=== PATIENT | female | born 1940 | race Two or more races ===

== ENCOUNTER 2018-06-06 21:48 | Inpatient (IN) | payer MEDICARE, BC ==
[~2018-06-06] VITALS: Ht 157.5 cm; Wt 52.6 kg
[~2018-06-06 21:48] MED LIST: AMLO5TAB9 PO; DIGO125T PO; DILT180C66 PO; DIVA-78 PO; FLUT1DIS5 INH; GEMF600T5 PO; IPRA0.2S49 IH; IPRA42SP2 NS; LEVO50TA8 PO; OMEP20CA10 PO; PRED5TAB48 PO
[2018-06-06] MEDS ORDERED: FURO20TA4 PO (22:24)
[2018-06-06] MEDS ORDERED: POLY30DR EACHEYE (22:27)
[2018-06-06] MEDS ORDERED: PANT40TA4 PO (22:29)
[2018-06-06] MEDS ORDERED: RISP1TAB27 PO (22:30)
[2018-06-06] MEDS ORDERED: IPRATROPIUM NEB FS 0.5 MG/2.5 ML AMPUL.NEB IH PRN (22:30)
[2018-06-06] MEDS ORDERED: SODI100037 PO (22:32)
[2018-06-06] MEDS ORDERED: TOBR5DRO36 LEFTEYE (22:35)
[2018-06-07] MEDS ORDERED: MAG HYDROX/AL HYDROX/SIMETH 30 ML UDC PO PRN
[2018-06-07] MEDS ORDERED: ACETAMINOPHEN 325 MG TABLET PO PRN
[2018-06-07] MEDS ORDERED: LORAZEPAM 0.5 MG TABLET PO PRN
[2018-06-07] MEDS ORDERED: TEMAZEPAM 7.5 MG CAPSULE PO PRN
[2018-06-07] MEDS ORDERED: MAGNESIUM HYDROXIDE 30 ML UDC PO PRN
[2018-06-07 00:38] VITALS: BP 115/72
--- NOTE | 2018-06-07 00:55 | NUR ---
ADMISSION NOTES ADMITTED THIS 77 Y/O FEMALE VOLUNTARY STATUS, PATIENT ADMITTED FROM [facility] AND INTIALLY FROM HOME , PT. ADMITTED ON VOLUNTARILY DUE TO SUICIDAL IDEATION , OVER DOSE, PT. STATES TOOK APPROXIMATELY #15 OF RISPERDAL TABLET, AND APPROXIMATELY # 30 OF DIGOXIN TABLET, C/O DEPRESSION , UPON FACE TO FACE ASSESSMENT PATIENT IS A&O X-2,3 COOPERTIVE, DEPRESSED MOOD, FELLING HELPLESS , FLAT AFFECT ,EASILY AGITATED , PT.IS POOR HISTORIAN, POOR INSIGHT ,POOR JUDGEMENT ,V/S WNL, NO ACUTE DISTRESS NOTED , MD AWARE AND NOTIFIED OF THE ADMISSION , SKIN ASSESSMENT DONE, PICTURE TAKEN AND PLACE IN THE CHART, ENCOURAGED PT. VERBALIZED ANY FEELING CONCERN TO STAFF, ORIENT TO UNIT POLICY, WILL CONTINUE TO MONITOR FOR Q15, CONTRACT FOR SAFETY AND BEHAVIOR.
[2018-06-07 07:33] LABS: BASOPHILS % (AUTO) 0.5 % (0.0-2.0); EOSINOPHILS % (AUTO) 1.3 % (0.0-6.0); HEMATOCRIT 36 % (33-45); HEMOGLOBIN 12.1 g/dL (11.5-14.8); LYMPHOCYTES # (AUTO) 1.8 /CMM (0.8-4.8); LYMPHOCYTES % (AUTO) 32.3 % (20.0-44.0); MEAN CORPUSCULAR HGB CONC 33 g/dl (31.0-36.0); MEAN CORPUSCULAR VOLUME 91 fL (82-100); MONOCYTES # (AUTO) 0.6 /CMM (0.1-1.30); MONOCYTES % (AUTO) 9.8 % (2.0-12.0); NEUTROPHILS # (AUTO) 3.1 /CMM (1.8-8.9); NEUTROPHILS % (AUTO) 56.1 % (43.0-81.0); PLATELET COUNT (AUTO) 160 /CMM (150-450); RED BLOOD CELL COUNT(AUTO) 4.02 MIL/uL (4.0-5.2); WHITE BLOOD COUNT (AUTO) 5.6 K/uL (4.3-11.0)
[2018-06-07 07:41] LABS: ALANINE AMINOTRANSFERASE 18 U/L (12-78); ALBUMIN 2.7 g/dL (3.4-5.0); ALKALINE PHOSPHATASE 46 U/L (46-116); ASPARTATE AMINOTRANSFERASE 17 U/L (15-37); BILIRUBIN,TOTAL 0.3 mg/dL (0.2-1.0); CALCIUM, SERUM 9.1 mg/dL (8.5-10.1); CARBON DIOXIDE 31 mmol/L (21-32); CHLORIDE 98 mmol/L (98-107); CREATININE 0.8 mg/dL (0.6-1.3); GLUCOSE 94 mg/dL (74-106); POTASSIUM 4.5 mmol/L (3.5-5.1); SODIUM SERUM 135 mmol/L (136-145); UREA NITROGEN, BLOOD 26 mg/dL (7-18)
[2018-06-07 07:42] LABS: DIGOXIN 1.73 ng/mL (0.90-2.00)
[2018-06-07 08:00] VITALS: BP_SYST 121; BP_DIAS 55; BP_DIAS 66
[2018-06-07] MEDS: PANTOPRAZOLE 40 MG TABLET.DR PO SCH (08:15)
[2018-06-07] MEDS: LEVOTHYROXINE SODIUM 50 MCG TABLET PO SCH (08:15)
[2018-06-07 08:35] LABS: CHOLESTEROL 184 mg/dL (<200); HDL CHOLESTEROL 45 mg/dL (40-60); TRIGLYCERIDES 235 mg/dL (30-150)
[2018-06-07 08:36] LABS: LDL 110 mg/dL (0-99)
[2018-06-07] MEDS ORDERED: DILTIAZEM HCL 30 MG TABLET PO SCH (09:00)
[2018-06-07] MEDS ORDERED: FLUTICASONE/SALMETEROL DISKUS IH SCH (09:00)
[2018-06-07] MEDS: DIGOXIN 0.125 MG TABLET PO SCH (09:30)
--- NOTE | 2018-06-07 09:30 | NUR ---
GPS/RN-NOTES VERIFY WITH PATIENT REGARDING PREDNISONE ALLERGY. PATIENT STATED" I'M ONLY ALLERGIC TO IT WHEN THEY GIVE ME LARGE DOSE LIKE 40MG, IT MAKES ME PSYCHOTIC, 10MG IS OK" ADMINISTER PREDNISONE 10 MG P.O ORDER.
[2018-06-07] MEDS: predniSONE 10 MG TABLET PO SCH (09:31)
[2018-06-07] MEDS: AMLODIPINE BESYLATE 5 MG TABLET PO SCH (09:31)
[2018-06-07] MEDS: GEMFIBROZIL 600 MG TABLET PO SCH ×2 (09:31→17:07)
[2018-06-07] MEDS: FLUTICASONE/VILANTEROL 1 EACH BLST.W.DEV IH SCH (09:34)
--- NOTE | 2018-06-07 12:05 | NUR ---
INITIAL DISCHARGE PLAN: Patient wishes to be discharged home to [address] [place] [address]. EMPERATRIZ contacted pts daughter Danette [phone] who stated pt is able to return home once stable for discharge and also mentioned she was going to request DPOA and administer pts medication to avoid pt attempting to overdose again. SW will help form a safe and proper discharge in collaboration with daughter, pt and MD.
[2018-06-07] MEDS: DILTIAZEM HCL 30 MG TABLET PO SCH ×2 (12:59→17:07)
[2018-06-07 13:03] LABS: APPEARANCE,URINE SL CLOUDY (CLEAR); BILIRUBIN,URINE NEGATIVE (NEGATIVE); BLOOD, URINE NEGATIVE Ery/uL (NEGATIVE); COLOR,URINE YELLOW (YELLOW); KETONES,URINE NEGATIVE (NEGATIVE); LEUKOCYTE ESTERASE ,URINE NEGATIVE (NEGATIVE); NITRITE, URINE NEGATIVE (NEGATIVE); PROTEIN,URINE NEGATIVE (NEGATIVE); UGLUCOSE NEGATIVE (NEGATIVE); UROBILINOGEN,URINE 0.2 EU/dL (0.2)
[2018-06-07 16:00] VITALS: BP 106/60
[2018-06-07 20:00] VITALS: BP 106/58
[2018-06-07] MEDS: MIRTAZAPINE 15 MG TABLET PO SCH (21:29)
[2018-06-07] MEDS: risperiDONE 1 MG TABLET PO SCH (21:29)
[2018-06-08] MEDS: DILTIAZEM HCL 30 MG TABLET PO SCH ×4 (05:54→17:17)
--- NOTE | 2018-06-08 05:55 | NUR ---
BP 128/63, HR 60
[2018-06-08 08:00] VITALS: BP_SYST 116; BP_DIAS 59; BP_DIAS 69
[2018-06-08] MEDS: DIVALPROEX SODIUM 250 MG TABLET.DR PO SCH ×3 (08:41→16:41)
[2018-06-08] MEDS: PANTOPRAZOLE 40 MG TABLET.DR PO SCH (08:41)
[2018-06-08] MEDS: LEVOTHYROXINE SODIUM 50 MCG TABLET PO SCH (08:41)
[2018-06-08] MEDS: GEMFIBROZIL 600 MG TABLET PO SCH ×2 (08:41→16:41)
[2018-06-08] MEDS: predniSONE 10 MG TABLET PO SCH (08:41)
[2018-06-08] MEDS: AMLODIPINE BESYLATE 5 MG TABLET PO SCH (08:42)
[2018-06-08] MEDS: DIGOXIN 0.125 MG TABLET PO SCH (08:42)
[2018-06-08] MEDS: FLUTICASONE/VILANTEROL 1 EACH BLST.W.DEV IH SCH (08:43)
--- NOTE | 2018-06-08 09:48 | NUR ---
WOUND CARE CONSULT: PT PRESENTS WITH SACRAL SCAR AND BILATERAL BUTTOCKS IRRIATION, LEFT GROIN SUTURE, ALL PRESENT ON ADMISSION.D RECOMMENDATIONS MADE FOR SKIN PROTECTION AND DISCUSSED WITH NURSING STAFF. PT IS CONTINENT AND AMBULATORY. WILL SEE PRN. BARILLAS IN AGREEMENT WITH PLAN OF CARE. Addendum: 06/08/18 at 0950 by TENZIN RADERU DEFER TO MD FOR LEFT GROIN SUTURE, PRESENT ON ADMISSION. Addendum: 06/08/18 at 0950 by TENZIN LEARY WNBILLU Amended: Links added.
[2018-06-08] MEDS ORDERED: Z GUARD REMEDY 2 OZ OINT TP PRN (10:00)
[2018-06-08] MEDS: Z GUARD REMEDY 2 OZ OINT TP SCH (11:17)
[2018-06-08 16:00] VITALS: BP 106/52
[2018-06-08 20:00] VITALS: BP 110/47
[2018-06-08] MEDS: risperiDONE 1 MG TABLET PO SCH (21:20)
[2018-06-08] MEDS: MIRTAZAPINE 15 MG TABLET PO SCH (21:20)
--- NOTE | 2018-06-09 00:25 | NUR ---
BP NOW 124/49, PULSE 60.
[2018-06-09] MEDS: DILTIAZEM HCL 30 MG TABLET PO SCH ×4 (06:00→18:00)
--- NOTE | 2018-06-09 06:13 | NUR ---
BP NOW 121/41, PULSE 60.
[2018-06-09 06:14] VITALS: BP 121/41
[2018-06-09 08:00] VITALS: BP 110/59
[2018-06-09] MEDS: PANTOPRAZOLE 40 MG TABLET.DR PO SCH (08:19)
[2018-06-09] MEDS: DIVALPROEX SODIUM 250 MG TABLET.DR PO SCH ×3 (08:19→16:36)
[2018-06-09] MEDS: GEMFIBROZIL 600 MG TABLET PO SCH ×2 (08:19→16:36)
[2018-06-09] MEDS: Z GUARD REMEDY 2 OZ OINT TP SCH (08:20)
[2018-06-09] MEDS: DIGOXIN 0.125 MG TABLET PO SCH (08:20)
[2018-06-09] MEDS: AMLODIPINE BESYLATE 5 MG TABLET PO SCH (08:20)
[2018-06-09] MEDS: predniSONE 10 MG TABLET PO SCH (08:20)
[2018-06-09] MEDS: LEVOTHYROXINE SODIUM 50 MCG TABLET PO SCH (08:20)
[2018-06-09] MEDS: FLUTICASONE/VILANTEROL 1 EACH BLST.W.DEV IH SCH (08:21)
[2018-06-09 16:00] VITALS: BP 110/56
[2018-06-09 20:00] VITALS: BP 111/48
[2018-06-09] MEDS: MIRTAZAPINE 15 MG TABLET PO SCH (22:03)
[2018-06-09] MEDS: risperiDONE 1 MG TABLET PO SCH (22:03)
--- NOTE | 2018-06-10 00:30 | NUR ---
GPS RN NOTES PT SLEEPING. EASILY AROUSABLE. NOT IN ANY DISTRESS. NO SOB NOTED. NO S/SX OF ANY PAIN OR DISCOMFORT AT THIS TIME. WILL CONTINUE TO MONITOR FOR BEHAVIOR AND SAFETY.
[2018-06-10] MEDS: DILTIAZEM HCL 30 MG TABLET PO SCH ×6 (06:42→23:43)
[2018-06-10] MEDS: PANTOPRAZOLE 40 MG TABLET.DR PO SCH (07:30)
[2018-06-10] MEDS: LEVOTHYROXINE SODIUM 50 MCG TABLET PO SCH (07:30)
[2018-06-10 07:33] LABS: CALCIUM, SERUM 9.5 mg/dL (8.5-10.1); CARBON DIOXIDE 29 mmol/L (21-32); CHLORIDE 103 mmol/L (98-107); CREATININE 0.9 mg/dL (0.6-1.3); GLUCOSE 92 mg/dL (74-106); POTASSIUM 4.2 mmol/L (3.5-5.1); SODIUM SERUM 138 mmol/L (136-145); UREA NITROGEN, BLOOD 27 mg/dL (7-18)
[2018-06-10 08:00] VITALS: BP 111/56
[2018-06-10] MEDS: DIGOXIN 0.125 MG TABLET PO SCH (09:30)
[2018-06-10] MEDS: predniSONE 10 MG TABLET PO SCH (09:30)
[2018-06-10] MEDS: GEMFIBROZIL 600 MG TABLET PO SCH ×2 (09:30→16:05)
[2018-06-10] MEDS: AMLODIPINE BESYLATE 5 MG TABLET PO SCH (09:30)
[2018-06-10] MEDS: DIVALPROEX SODIUM 250 MG TABLET.DR PO SCH ×3 (09:30→17:03)
[2018-06-10] MEDS: Z GUARD REMEDY 2 OZ OINT TP SCH (09:32)
[2018-06-10] MEDS: FLUTICASONE/VILANTEROL 1 EACH BLST.W.DEV IH SCH (09:32)
[2018-06-10 16:00] VITALS: BP 122/76
--- NOTE | 2018-06-10 19:05 | NUR ---
RN OPENING NOTES: RECEIVED PT FROM GPS FLOOR WITH RN AT BEDSIDE. PT IS A/O2-3. NO IV NOTED PER GPS PROTOCOL. NO SOB NOTED. NO S/S OF DISTRESS. PT IN BED WATCHING TELEVISION AT THIS TIME. BED KEPT IN LOW, LOCKED POSITION, AND SIDE RAILS X 2UP. WILL CONTINUE TO MONITOR PT. Addendum: 06/10/18 at 2202 by KEVIN EDMOND RN BELONGINGS PLACED IN CABINET AND LOCKED.
[2018-06-10 20:00] VITALS: BP 128/82
[2018-06-10] MEDS: MIRTAZAPINE 15 MG TABLET PO SCH (21:26)
[2018-06-10] MEDS: risperiDONE 1 MG TABLET PO SCH (21:26)
--- NOTE | 2018-06-10 23:43 | NUR ---
RN NOTES: PT REFUSING CARDIZEM 30MG PO. PT SAYING THAT HER BLOOD PRESSURE IS OK. PT'S PULSE BELOW 60. WILL MONITOR BLOOD PRESSURE AGAIN IN THE AM AND ADMINISTER NEEDED. WILL CONTINUE TO MONITOR.
[2018-06-11] MEDS: DILTIAZEM HCL 30 MG TABLET PO SCH ×3 (06:00→17:40)
--- NOTE | 2018-06-11 06:39 | NUR ---
RN CLOSING NOTES: ALL NEEDS WERE ATTENDED AND ANTICIPATED FOR. PT ASLEEP AT THIS TIME AND RESTING COMFORTABLY. NO IV NOTED PER GPS PROTOCOL. SITTER AT BEDSIDE. PT'S CARDIZEM 30MG HELD THIS AM BLOOD PRESSURE WAS LOW. BED KEPT IN LOW, LOCKED POSITION, AND SIDE RAILS X 2UP. NO SOB NOTED. NO S/S OF DISTRESS. WILL ENDORSE TO AM NURSE FOR FRANCK. Addendum: 06/11/18 at 0641 by KEVIN EDMOND RN PT SLEPT FOR AT LEAST 8 HOURS. Addendum: 06/11/18 at 0641 by KEVIN EDMOND RN PT DENIES ANY SI AT THIS TIME.
--- NOTE | 2018-06-11 07:30 | NUR ---
MS RN OPENING NOTE RECEIVED PT IN BED SLEEPING. NO ACUTE DISTRESS NOTED AT THIS TIME. BREATHING IS EVEN AND UNLABORED ON ROOM AIR. PT HAS NO IV ACCESS PER GPS PROTOCOL. ALL NEEDS ATTENDED TO. 1:1 SITTER NOTED AT THE BEDSIDE FOR SAFETY PER PROTOCOL. BED IS LOCKED AND IN LOWEST POSITION, SIDE RAILS UP X2, CALL LIGHT AND POSSESSIONS WITHIN REACH.
[2018-06-11 08:00] VITALS: BP 127/57
--- NOTE | 2018-06-11 08:00 | NUR ---
MS RN NOTE PT REQUESTS TO TAKE SYNTHROID AND PROTONIX PO LATER WITH OTHER MEDICATIONS SO SHE CAN SLEEP. RISKS AND BENEFITS EXPLAINED. PT STILL DECLINED TO TAKE MEDICATIONS NOW.
--- NOTE | 2018-06-11 08:45 | NUR ---
MS RN NOTE SPOKE WITH MANAGER DEPARTMENT IN PERSON REQUESTING THAT BREO, PREDNISONE 10MG, AND LOPID 600MG BE RE STOCKED FOR ADMINISTRATION. AWAITING DELIVERY.
[2018-06-11] MEDS: AMLODIPINE BESYLATE 5 MG TABLET PO SCH (09:00)
--- NOTE | 2018-06-11 09:15 | NUR ---
MS RN NOTE PER PHARMACIST, CLARIFY WITH PRIMARY DR REGARDING PREDNISONE ADMINISTRATION AND LISTED ALLERGY BEFORE ADMINISTRATION. PT STATES THAT SHE DOES NOT EXPERIENCE ANY SOB, HIVES, RASH, CHEST PAIN OR TIGHTNESS WHEN SHE TAKES PREDNISONE AT "LOW DOSES". AWAITING RESPONSE FROM DR. VERDIN
--- NOTE | 2018-06-11 09:44 | NUR ---
MS RN NOTE PER ANDREINA HADDAD TO CONTINUE PREDNISONE 10MG.
[2018-06-11] MEDS: DIVALPROEX SODIUM 250 MG TABLET.DR PO SCH ×3 (09:48→17:40)
[2018-06-11] MEDS: PANTOPRAZOLE 40 MG TABLET.DR PO SCH (09:48)
[2018-06-11] MEDS: LEVOTHYROXINE SODIUM 50 MCG TABLET PO SCH (09:48)
[2018-06-11] MEDS: GEMFIBROZIL 600 MG TABLET PO SCH ×2 (09:48→17:40)
[2018-06-11] MEDS: predniSONE 10 MG TABLET PO SCH (09:48)
[2018-06-11] MEDS: FLUTICASONE/VILANTEROL 1 EACH BLST.W.DEV IH SCH (09:49)
[2018-06-11] MEDS: Z GUARD REMEDY 2 OZ OINT TP SCH (09:49)
[2018-06-11] MEDS: DIGOXIN 0.125 MG TABLET PO SCH (09:49)
--- NOTE | 2018-06-11 12:30 | NUR ---
MS RN LUNCH PT REFUSING LUNCH AT THIS TIME. PT STATES SHE DOES NOT FEEL LIKE EATING. OFFERED TO PROVIDE A DIFFERENT MEAL OR SANDWICH. PT DECLINED FOOD. ENCOURAGE PO INTAKE, PT DRANK 1 CUP OF WATER. OFFERED JUICE, PT DECLINED.
--- NOTE | 2018-06-11 13:00 | NUR ---
MS RN LUNCH PT STILL REFUSING LUNCH AND SNACKS. OFFERED TO CALL [employer] FOR A DIFFERENT MEAL OR PROVIDE SNACKS AND JUICE. PT DECLINED AND STATED SHE HAS NO APPETITE. ENCOURAGED PO INTAKE AND PROVIDED EDUCATION REGARDING RISKS AND BENEFITS. PT STILL DECLINED AT THIS TIME.
--- NOTE | 2018-06-11 19:05 | NUR ---
MS RN CLOSING NOTE PT IN BED, SLEEPING AND EASILY AROUSABLE PT IS ALERT AND ORIENTED X4, DENIES N/V, CHEST PAIN, SOB. DENIES SI AND AUDITORY/VISUAL HALLUCINATIONS AT THIS TIME AND FOR THE DURATION OF THE SHIFT. NO IV ACCESS PER GPS PROTOCOL. 1:1 SITTER AT THE BEDSIDE FOR SAFETY. ALL NEEDS ATTENDED TO. ADLS PROVIDED AND PT ASSISTED TO TURN AND REPOSITION Q2H FOR THE DURATION OF THE SHIFT. Q15 SAFETY CHECKS COMPLETED PER PROTOCOL. BED IS LOCKED AND IN LOWEST POSITION, SIDE RAILS UP X2, CALL LIGHT AND POSSESSIONS WITHIN REACH.
--- NOTE | 2018-06-11 19:30 | NUR ---
MS RN OPENING NOTES: RECEIVED PT ON ROOM AIR AND IS TOLERATING WELL. SITTER AT BEDSIDE AT THIS TIME. PT ASLEEP AND AROUSABLE TO NAME AND TOUCH. NO SOB NOTE.D NO S/S OF DISTRESS. PT DENIES ANY SI. BED KEPT IN LOW, LOCKED POSITION, AND SIDE RAILS X 2UP. WILL CONTINUE TO MONITOR PT. Addendum: 06/11/18 at 2231 by KEVIN EDMOND RN RN OPENING NOTES
[2018-06-11 20:00] VITALS: BP 106/51
[2018-06-11] MEDS: risperiDONE 1 MG TABLET PO SCH (21:59)
[2018-06-11] MEDS: MIRTAZAPINE 15 MG TABLET PO SCH (21:59)
[2018-06-12] MEDS: DILTIAZEM HCL 30 MG TABLET PO SCH ×4 (06:00→17:17)
[2018-06-12 06:02] VITALS: BP 110/51
--- NOTE | 2018-06-12 06:37 | NUR ---
RN CLOSING NOTES: ALL NEEDS WERE ATTENDED AND ANTICIPATED FOR. PT KEPT CLEAN, DRY, AND COMFORTABLE. PT ASLEEP AT THIS TIME. SITTER AT BEDSIDE. NO IV NOTED PER GPS PROTOCOL. CARDIZEM 30MG HELD THIS AM D/T DECREASED BP. BED KEPT IN LOW, LOCKED POSITION, AND SIDE RAILS X 2UP. WILL ENDORSE TO AM NURSE FOR FRANCK.
--- NOTE | 2018-06-12 07:38 | NUR ---
MS/RN OPENING NOTE PATIENT IN BED IN STABLE CONDITION. A/O X 2-3. NO SIGNS OF ACUTE DISTRESS. NO COMPLAIN OF PAIN OR DISCOMFORT. ALL NEEDS ATTENDED TO. CALL LIGHT WITHIN REACH. 1:1 SITTER AT BEDSIDE. WILL CONTINUE TO MONITOR TO ENSURE SAFETY.
[2018-06-12] MEDS: DIVALPROEX SODIUM 250 MG TABLET.DR PO SCH ×3 (08:40→16:24)
[2018-06-12] MEDS: PANTOPRAZOLE 40 MG TABLET.DR PO SCH (08:40)
[2018-06-12] MEDS: AMLODIPINE BESYLATE 5 MG TABLET PO SCH (08:40)
[2018-06-12] MEDS: DIGOXIN 0.125 MG TABLET PO SCH (08:40)
[2018-06-12] MEDS: FLUTICASONE/VILANTEROL 1 EACH BLST.W.DEV IH SCH (08:40)
[2018-06-12] MEDS: predniSONE 10 MG TABLET PO SCH (08:40)
[2018-06-12] MEDS: LEVOTHYROXINE SODIUM 50 MCG TABLET PO SCH (08:40)
[2018-06-12] MEDS: GEMFIBROZIL 600 MG TABLET PO SCH ×2 (08:41→16:24)
[2018-06-12] MEDS: Z GUARD REMEDY 2 OZ OINT TP SCH (08:42)
[2018-06-12 08:59] VITALS: BP 137/58
[2018-06-12 16:34] VITALS: BP 111/86
--- NOTE | 2018-06-12 18:07 | NUR ---
MS/RN CLOSING NOTE PATIENT IN BED IN STABLE CONDITION. A/O X 3. NO SIGNS OF ACUTE DISTRESS. NO COMPLAIN OF PAIN OR DISCOMFORT. ALL NEEDS ATTENDED TO. CALL LIGHT WITHIN REACH. 1:1 SITTER AT BEDSIDE. WILL ENDORSE TO NEXT SHIFT FOR CONTINUITY OF CARE.
--- NOTE | 2018-06-12 19:30 | NUR ---
RN OPENING NOTES: RECEIVED PT ON ROOM AIR AND IS TOLERATING WELL. SITTER AT BEDSIDE. PT WATCHING TELEVISION AT THIS TIME. NO IV NOTED PER PROTOCOL. PT DENIES ANY SI AT THIS TIME. BED KEPT IN LOW, LOCKED POSITION, AND SIDE RAILS X 2UP. WILL CONTINUE TO MONITOR PT. Addendum: 06/12/18 at 1945 by KEVIN EDMOND RN RN OPENING NOTES
[2018-06-12 20:00] VITALS: BP 109/49
[2018-06-12] MEDS ORDERED: MIRTAZAPINE 15 MG TABLET ONE (21:23)
[2018-06-12] MEDS: risperiDONE 1 MG TABLET PO SCH (21:26)
[2018-06-12] MEDS: MIRTAZAPINE 15 MG TABLET PO SCH (21:26)
--- NOTE | 2018-06-12 21:37 | NUR ---
MS RN NOTES: REMERON 22.5MG OVERRODE FROM GLOBAL LIST THIS FLOOR ONLY HAD 1 REMERON 15MG LEFT.
--- NOTE | 2018-06-13 00:07 | NUR ---
MS RN NOTES: CARDIZEM 30MG HELD D/T TO DECREASED BLOOD PRESSURE. WILL CONTINUE TO MONITOR BP AND RECHECK IN THE AM.
--- NOTE | 2018-06-13 05:28 | NUR ---
RN NOTES PT MOVED TO GPS VIA WHEELCHAIR WITH GEROPSYCHOLOGIST TO ROOM 216A IN STABLE CONDITION. ALL BELONGINGS AND CHART SENT WITH PT.
--- NOTE | 2018-06-13 05:30 | NUR ---
RN NOTES: PT LEFT TO 216-1 IN STABLE CONDITION. ALL BELONGINGS TAKEN WITH SITTER. ENDORSED TO RECEIVING RN.
--- NOTE | 2018-06-13 05:30 | NUR ---
RN GPS NOTES RECEIVED PATIENT FROM MS 2 TRANSFERRED IN STABLE CONDITION SAFELY PLACED IN BED, ALERT AND VERBALLY RESPONSIVE. BODY ASSESSMENT DONE, NO CHANGES NOTED FROM PREVIOUS PICTURES IN CHART. BELONGINGS DONE, GLASSES KEPT AT BEDSIDE PER PATIENT REQUEST. BLOOD PRESSURE 111/53,70. CARDIZEM HELD DUE TO DECREASE B/P. WILL CONTINUE TO MONITOR.
[2018-06-13] MEDS: DILTIAZEM HCL 30 MG TABLET PO SCH ×5 (05:37→21:32)
[2018-06-13 08:00] VITALS: BP 113/58
--- NOTE | 2018-06-13 09:56 | NUR ---
EMPERATRIZ contacted pts daughter Danette [phone] to inform her pt will be discharging tomorrow 06/14/18. Daughter expressed concern and stated she feels pt is not ready for discharge as she still is showing symptoms of depression. Daughter states pt is only laying in bed and sleeping all day. EMPERATRIZ informed her that she will encourage pt to participate in group today and also inform Psychiatrist Dr. Anne of her concern. Daughter agreed.
--- NOTE | 2018-06-13 09:59 | NUR ---
EMPERATRIZ contacted Dr. Anne and left a voicemail informing him of pts daughter's concern with feeling pt is not ready for discharge as she is still exhibiting symptoms of depression.
[2018-06-13] MEDS: GEMFIBROZIL 600 MG TABLET PO SCH ×2 (10:26→17:16)
[2018-06-13] MEDS: LEVOTHYROXINE SODIUM 50 MCG TABLET PO SCH (10:26)
[2018-06-13] MEDS: predniSONE 10 MG TABLET PO SCH (10:26)
[2018-06-13] MEDS: DIGOXIN 0.125 MG TABLET PO SCH (10:26)
[2018-06-13] MEDS: AMLODIPINE BESYLATE 5 MG TABLET PO SCH (10:27)
[2018-06-13] MEDS: PANTOPRAZOLE 40 MG TABLET.DR PO SCH (10:27)
[2018-06-13] MEDS: DIVALPROEX SODIUM 250 MG TABLET.DR PO SCH ×3 (10:27→17:15)
[2018-06-13] MEDS: FLUTICASONE/VILANTEROL 1 EACH BLST.W.DEV IH SCH (10:27)
[2018-06-13] MEDS: Z GUARD REMEDY 2 OZ OINT TP SCH (10:28)
--- NOTE | 2018-06-13 12:21 | NUR ---
EMPERATRIZ contacted pts daughter Danette [phone] to inform her SW spoke with Psychiatrist Dr. Anne regarding her concerns and MD has changed discharge to Monday06/15/18 but will take it day by day. EMPERATRIZ also informed her that pt was was walking and participated in today's groups. SW also stated that she spoke with pt and pt also feels shes not ready to be discharged and stated that she may be feeling ill due to the blood pressure medication she is currently on. EMPERATRIZ informed daughter that she has made the charge nurse aware who will inform pts medical doctor. Daughter agreed.
--- NOTE | 2018-06-13 12:24 | NUR ---
GROUP NOTE: Topic: "What are you looking forward to when you discharge the hospital" S: "I am looking forward to seeing my great grandchildren, they bring so much sundar and happiness into my life." O: pt had a smile on her face and appeared with a euphoric mood. A: Pt gained awareness and realized that she has a family who loves and cared about her. Pt stated that she wanted to continue living and would not try to end her life again. P: Pt will continue in milieu treatment and medication stabilization.
[2018-06-13 16:00] VITALS: BP 118/55
[2018-06-13 20:27] VITALS: BP 111/42
[2018-06-13] MEDS: MIRTAZAPINE 15 MG TABLET PO SCH (21:31)
[2018-06-13] MEDS: risperiDONE 1 MG TABLET PO SCH (21:31)
[2018-06-14] MEDS: DILTIAZEM HCL 30 MG TABLET PO SCH ×3 (06:49→17:48)
[2018-06-14 08:00] VITALS: BP 116/72
[2018-06-14] MEDS: DIVALPROEX SODIUM 250 MG TABLET.DR PO SCH ×3 (08:30→16:42)
[2018-06-14] MEDS: predniSONE 10 MG TABLET PO SCH (08:31)
[2018-06-14] MEDS: LEVOTHYROXINE SODIUM 50 MCG TABLET PO SCH (08:31)
[2018-06-14] MEDS: AMLODIPINE BESYLATE 5 MG TABLET PO SCH (08:31)
[2018-06-14] MEDS: DIGOXIN 0.125 MG TABLET PO SCH (08:31)
[2018-06-14] MEDS: GEMFIBROZIL 600 MG TABLET PO SCH ×2 (08:31→16:42)
[2018-06-14] MEDS: PANTOPRAZOLE 40 MG TABLET.DR PO SCH (08:31)
[2018-06-14] MEDS: Z GUARD REMEDY 2 OZ OINT TP SCH (08:33)
[2018-06-14] MEDS: FLUTICASONE/VILANTEROL 1 EACH BLST.W.DEV IH SCH (09:16)
[2018-06-14 16:03] VITALS: BP 107/65
[2018-06-14 20:00] VITALS: BP 118/57
[2018-06-14] MEDS: risperiDONE 1 MG TABLET PO SCH (21:17)
[2018-06-14] MEDS: MIRTAZAPINE 15 MG TABLET PO SCH (21:18)
[2018-06-15] MEDS: DILTIAZEM HCL 30 MG TABLET PO SCH ×4 (06:00→17:03)
[2018-06-15 08:00] VITALS: BP 115/48
[2018-06-15] MEDS: PANTOPRAZOLE 40 MG TABLET.DR PO SCH (08:14)
[2018-06-15] MEDS: LEVOTHYROXINE SODIUM 50 MCG TABLET PO SCH (08:14)
[2018-06-15] MEDS: DIVALPROEX SODIUM 250 MG TABLET.DR PO SCH ×3 (08:14→17:03)
[2018-06-15] MEDS: predniSONE 10 MG TABLET PO SCH (08:14)
[2018-06-15] MEDS: FLUTICASONE/VILANTEROL 1 EACH BLST.W.DEV IH SCH (08:15)
[2018-06-15] MEDS: GEMFIBROZIL 600 MG TABLET PO SCH ×2 (08:15→17:03)
[2018-06-15] MEDS: AMLODIPINE BESYLATE 5 MG TABLET PO SCH (08:16)
[2018-06-15] MEDS: DIGOXIN 0.125 MG TABLET PO SCH (09:00)
[2018-06-15] MEDS: Z GUARD REMEDY 2 OZ OINT TP SCH (09:55)
[2018-06-15 16:00] VITALS: BP 106/49
[2018-06-15 20:00] VITALS: BP 114/43
[2018-06-15] MEDS: risperiDONE 1 MG TABLET PO SCH (21:11)
[2018-06-15] MEDS: MIRTAZAPINE 15 MG TABLET PO SCH (21:11)
[2018-06-16] MEDS: DILTIAZEM HCL 30 MG TABLET PO SCH ×2 (06:00)
--- NOTE | 2018-06-16 07:03 | NUR ---
PAGED DR. BISWAS, RE: LOW BP 91/35, HR 54. PATIENT IS ON NORVASC 5 DAILY AND CARDIZEM 30 MG PO Q 12H
--- NOTE | 2018-06-16 07:09 | NUR ---
DR. PEREZ CALLED, ORDERED TO DISCONTINUE NORVASC AND CARDIZEM
[2018-06-16 08:00] VITALS: BP 100/55
[2018-06-16] MEDS: DIGOXIN 0.125 MG TABLET PO SCH (09:00)
[2018-06-16] MEDS: predniSONE 10 MG TABLET PO SCH (10:49)
[2018-06-16] MEDS: LEVOTHYROXINE SODIUM 50 MCG TABLET PO SCH (10:49)
[2018-06-16] MEDS: DIVALPROEX SODIUM 250 MG TABLET.DR PO SCH ×3 (10:49→17:02)
[2018-06-16] MEDS: PANTOPRAZOLE 40 MG TABLET.DR PO SCH (10:49)
[2018-06-16] MEDS: GEMFIBROZIL 600 MG TABLET PO SCH ×2 (10:49→17:01)
[2018-06-16] MEDS: FLUTICASONE/VILANTEROL 1 EACH BLST.W.DEV IH SCH (10:50)
[2018-06-16] MEDS: Z GUARD REMEDY 2 OZ OINT TP SCH (10:50)
[2018-06-16 16:00] VITALS: BP 108/59
[2018-06-16 20:00] VITALS: BP 112/54
[2018-06-16] MEDS: MIRTAZAPINE 15 MG TABLET PO SCH (21:09)
[2018-06-16] MEDS: risperiDONE 1 MG TABLET PO SCH (21:09)
[2018-06-17 08:00] VITALS: BP 127/55
[2018-06-17] MEDS: DIGOXIN 0.125 MG TABLET PO SCH (09:00)
[2018-06-17] MEDS: predniSONE 10 MG TABLET PO SCH (09:44)
[2018-06-17] MEDS: GEMFIBROZIL 600 MG TABLET PO SCH ×2 (09:44→16:19)
[2018-06-17] MEDS: PANTOPRAZOLE 40 MG TABLET.DR PO SCH (09:44)
[2018-06-17] MEDS: FLUTICASONE/VILANTEROL 1 EACH BLST.W.DEV IH SCH (09:44)
[2018-06-17] MEDS: LEVOTHYROXINE SODIUM 50 MCG TABLET PO SCH (09:44)
[2018-06-17] MEDS: DIVALPROEX SODIUM 250 MG TABLET.DR PO SCH ×3 (09:44→16:19)
[2018-06-17] MEDS: Z GUARD REMEDY 2 OZ OINT TP SCH (09:45)
[2018-06-17 16:00] VITALS: BP 100/49
[2018-06-17 20:03] VITALS: BP 103/51
[2018-06-17 20:05] VITALS: BP 103/51
[2018-06-17] MEDS: risperiDONE 1 MG TABLET PO SCH (21:20)
[2018-06-17] MEDS: MIRTAZAPINE 15 MG TABLET PO SCH (21:21)
[2018-06-18 08:00] VITALS: BP 108/48
[2018-06-18] MEDS: PANTOPRAZOLE 40 MG TABLET.DR PO SCH (08:42)
[2018-06-18] MEDS: DIVALPROEX SODIUM 250 MG TABLET.DR PO SCH ×3 (08:42→17:12)
[2018-06-18] MEDS: LEVOTHYROXINE SODIUM 50 MCG TABLET PO SCH (08:42)
[2018-06-18] MEDS: GEMFIBROZIL 600 MG TABLET PO SCH ×2 (08:42→17:12)
[2018-06-18] MEDS: predniSONE 10 MG TABLET PO SCH (08:43)
[2018-06-18] MEDS: FLUTICASONE/VILANTEROL 1 EACH BLST.W.DEV IH SCH (08:43)
[2018-06-18] MEDS: Z GUARD REMEDY 2 OZ OINT TP SCH (08:43)
[2018-06-18] MEDS: DIGOXIN 0.125 MG TABLET PO SCH (08:44)
--- NOTE | 2018-06-18 16:00 | NUR ---
EMPERATRIZ contacted pts daughter Danette [phone] to inform her pt will be discharging tomorrow 06/19/18. Daughter agreed with discharge.
[2018-06-18 16:42] VITALS: BP 119/51
[2018-06-18 20:00] VITALS: BP 113/49
[2018-06-18] MEDS: MIRTAZAPINE 15 MG TABLET PO SCH (21:22)
[2018-06-18] MEDS: risperiDONE 1 MG TABLET PO SCH (22:00)
[2018-06-19 08:00] VITALS: BP 112/59
[2018-06-19] MEDS: FLUTICASONE/VILANTEROL 1 EACH BLST.W.DEV IH SCH (08:55)
[2018-06-19] MEDS: Z GUARD REMEDY 2 OZ OINT TP SCH (08:55)
[2018-06-19] MEDS: PANTOPRAZOLE 40 MG TABLET.DR PO SCH (08:55)
[2018-06-19] MEDS: GEMFIBROZIL 600 MG TABLET PO SCH (08:55)
[2018-06-19] MEDS: LEVOTHYROXINE SODIUM 50 MCG TABLET PO SCH (08:55)
[2018-06-19] MEDS: predniSONE 10 MG TABLET PO SCH (08:55)
[2018-06-19] MEDS: DIGOXIN 0.125 MG TABLET PO SCH (08:55)
[2018-06-19] MEDS: DIVALPROEX SODIUM 250 MG TABLET.DR PO SCH ×2 (08:55→12:48)
--- NOTE | 2018-06-19 10:07 | NUR ---
EMPERATRIZ contacted Psychiatrist Dr. Hetal Ojeda [address] [address] [phone] and left voicemail for call back to schedule a follow-up appointment. EMPERATRIZ also faxed FRANCK packet to [phone].
--- NOTE | 2018-06-19 14:41 | NUR ---
DISCHARGE NOTE: Pt will be discharging at 4:00pm home to [address] [facility] [address] via private vehicle. Pts daughter Danette [phone] will be picking pt up and transporting home. Pts mood is euthymic with congruent affect. Pt denied visual/auditory hallucinations and denied suicidal/homicidal ideations. Patient was provided referrals to address her substance use. Patient was referred to the [facility] [address] [place] [address] / and was encouraged to present at 9am on Wednesday June 20, 2018. Additional resources included [facility] [address] [place] [address] and [facility] [address] [place] [address] . For smoking cessation, patient was referred to the [employer] and [employer] [id number]-AAO. Pt will also participate in a telephone meeting with [employer] [phone] on Wednesday June 20, 2018 at 8:00am. Patient was also referred to the [employer] meeting on [address] [facility] [address] on Wednesday June 20, 2018 at 7:00 PM. Pt SW faxed FRANCK packet to Psychiatrist: Dr. Hetal Ojeda [address] [address] [phone] and left voicemail informing of pts discharge and needing to schedule a follow-up appointment within the next 7 days. Pt will schedule a follow-up appointment with Mechanical Laboratory Technician: Dr. Reanna Mcgrath [address] [facility] [place], [place] [address] [phone]. The multidisciplinary exitcare form was done, printed, signed, and given to the patient.
[2018-06-19 16:00] VITALS: BP 104/63
--- NOTE | 2018-06-19 16:30 | NUR ---
NURSING DISCHARGE NOTE: PT WAS DISCHARGED TODAY AT [address] HOME TO [address] [place] [address] VIA PRIVATE VEHICLE. PT WAS PICKED UP BY HER DAUGHTER JASON. PT LEFT THE UNIT VIA WHEELCHAIR ACCOMPANIED BY HER DAUGHTER AND 1 DIRECTOR OF ROTC TO PRIVATE VEHICLE. PT IS A&OX3, CALM, COOPERATIVE, PLEASANT, MED COMPLIANT, DENIES SI/HI AT THE TIME OF DISCHARGE, PT DENIES FEELING SAD OR DEPRESSED. PT WAS COOPERATIVE WITH DISCHARGE PROCESS AND HAS SIGNED ALL PAPERWORK. PT AND PT'S DAUGHTER VERBALIZED UNDERSTANDING OF DISCHARGE INSTRUCTIONS. PT REFUSED SKIN ASSESSMENT AND PICTURES TO BE TAKEN AT DISCHARGE. VS:104/63, 63, 18, 98.0, 95%RA, 0/10 PAIN. NO S/S OF ANY DISTRESS NOTED. NO C/O PAIN OR ANY DISCOMFORT. PRESCRIPTIONS WERE GIVEN TO PT AND PT AND PT'S DAUGHTER VERBALIZED UNDERSTANDING OF MEDICATIONS. DISCHARGE ORDER WAS OBTAINED FROM DR. ULNA AND PT IS MEDICALLY STABLE FOR DISCHARGE PER DR. KRISHNAMURTHY. ALL BELONGINGS WERE RETURNED TO PT WELL.
--- NOTE | 2018-07-04 11:07 | NUR ---
15 DAY SUBSTANCE ABUSE FOLLOW-UP: unable to follow up due to contact number no longer valid.
== END 2018-06-19 16:30 | disposition home or self-care (01) | DRG 885 ==
LOC: GPS 21:48 → GPSOV2 06-10 19:28 → GPS 06-13 06:10
PROVIDERS: ADMIT Psychiatry & Neurology Psychiatry; ATTEND Psychiatry & Neurology Psychiatry
DX: F31.5 Bipolar disorder, current episode depressed, severe, with psychotic features (principal); N17.0 Acute kidney failure with tubular necrosis; N18.9 Chronic kidney disease, unspecified; F29 Unspecified psychosis not due to a substance or known physiological condition; F41.9 Anxiety disorder, unspecified; I12.9 Hypertensive chronic kidney disease with stage 1 through stage 4 chronic kidney disease, or unspecified chronic kidney disease; I25.10 Atherosclerotic heart disease of native coronary artery without angina pectoris; E78.5 Hyperlipidemia, unspecified; K21.9 Gastro-esophageal reflux disease without esophagitis; Z82.49 Family history of ischemic heart disease and other diseases of the circulatory system; J44.9 Chronic obstructive pulmonary disease, unspecified; I34.0 Nonrheumatic mitral (valve) insufficiency; Z79.899 Other long term (current) drug therapy; Z91.5 Personal history of self-harm
CPT/HCPCS: 36415; 80048-TC; 80053-TC; 80061-TC; 80162-TC; 80164-TC; 81000-TC; 85025-TC; 87081-TC